=== PATIENT | female | born 1975 | race Caucasian/White ===

== ENCOUNTER → 2018-11-29 | Outpatient (CLI) | payer OTHER | LOC: BMCIMAGING 10:36 | PROVIDERS: ATTEND Nurse Practitioner | DX: N63.11 Unspecified lump in the right breast, upper outer quadrant (principal); Z85.3 Personal history of malignant neoplasm of breast; Z98.82 Breast implant status; Z90.13 Acquired absence of bilateral breasts and nipples ==

== ENCOUNTER → 2018-12-27 | Outpatient (CLI) | payer OTHER ==
[~2018-12-27] MED LIST: GADOBUTROL 10 ML VIAL IVP ONE
== END ==
LOC: FIMAGING 06:36
PROVIDERS: ATTEND Internal Medicine Hematology & Oncology
DX: C79.81 Secondary malignant neoplasm of breast (principal); Z90.13 Acquired absence of bilateral breasts and nipples
CPT/HCPCS: A9585; C8908